=== PATIENT | female | born 1940 | race Caucasian/White ===

== ENCOUNTER → 2018-04-15 17:33 | Outpatient (CLI) | payer MEDICARE, OTHER, SELFPAY ==
--- NOTE | 2018-04-15 17:37 | CT_ITS ---
STUDY: CT ABDOMEN AND PELVIS WITH AND WITHOUT CONTRAST REASON FOR EXAM: Female, 77 years old. Hematuria, flank pain RADIATION DOSAGE (If Supplied By Facility): CTDIvol = ( 9.36 ) mGy, DLP = ( 815.76 ) mGycm TECHNIQUE: Transaxial images were obtained from the dome of the diaphragm to the symphysis pubis without oral contrast. 100CC ml of Isovue 300 contrast was administered. Sagittal and coronal images were reconstructed. Individualized dose optimization techniques were used for this CT. COMPARISON: None. FINDINGS: The visualized lung bases are unremarkable. The visualized portions of the heart are within normal limits. Mild retrocrural adenopathy. Normal liver. Status post cholecystectomy. There is dilatation of the biliary system. 2 cm complex cystic nodule of the spleen. Normal pancreas. Normal bilateral adrenal glands. Normal right kidney. Normal left kidney. Normal visualized stomach. Normal small intestine. Normal colon. The appendix is visualized and appears normal. Calcified abdominal aorta. Normal inferior vena cava. There is adenopathy in the retroperitoneum. Normal urinary bladder. Normal uterus with focal calcification. Normal abdominal wall. Normal osseous structures. CT/CT Abd/Pelvis W/WO Contrast IMPRESSION: Retrocrural and retroperitoneal adenopathy. No renal stones or hydronephrosis. Complex cystic splenic nodule. Electronically Signed: Jesus Ha DO at 23:10 EDT Tel [phone], Service support ,
[2018-04-15 17:51] LABS: CREATININE FINGERSTICK 0.8 mg/dL (0.55-1.02); EGFR FINGERSTICK > 60.0000 mL/min (>60)
== END ==
PROVIDERS: Family Provider Family Medicine; PCP Family Medicine; Visit Provider Nurse Practitioner Adult Health
DX: R31.0 Gross hematuria (principal)
CPT/HCPCS: 74178; Q9967